=== PATIENT | female | born 1950 | race Caucasian/White ===

== ENCOUNTER → 2016-11-23 | Outpatient (CLI) | payer BC ==
[~2016-11-23] MED LIST: AFRIN) (GENASAL15 ML NOSE; ALEVE220 MG PO; ANUSOL-HC CREAM30 GM TOP; ASPIRIN EC81 MG PO; BENICAR40 MG PO; BLACK COHOSH200 MG PO; BYSTOLIC2.5 MG PO; CALCIUM + VITA1 EACH PO; COLACE100 MG PO; FEMARA 2.5 MG2.5 MG PO; LANTUS (IN100 UNIT/M SUB-Q; MAGNESIUM PO; MIRALAX17 GM PO; NORVASC5 MG PO; NOVOLOG100 UNIT/M SUB-Q; RESTASIS1 EACH OPHTH; ROXICODONE 5MG (5 MG PO; TYLENOL325 MG PO; VALIUM5 MG PO; VITAMIN E400 UNI2 PO
== END | disposition disaster alternative care site (69) ==
LOC: GRAD 09:32
DX: C50.811 Malignant neoplasm of overlapping sites of right female breast (principal); C72.0 Malignant neoplasm of spinal cord; M47.816 Spondylosis without myelopathy or radiculopathy, lumbar region; N95.1 Menopausal and female climacteric states

== ENCOUNTER → 2017-05-20 | Outpatient (CLI) | payer BC ==
[2017-05-20 07:34] LABS: ALBUMIN 3.4 gm/dL (3.5-5.0); ANION GAP 10.1 (10.0-19.0); CALCIUM 8.6 mg/dL (8.5-10.5); CREATININE 0.9 mg/dL (0.5-1.1); PHOSPHORUS 3.3 mg/dL (2.5-4.9); POTASSIUM 4.1 mMol/L (3.7-5.1)
== END | disposition disaster alternative care site (69) ==
LOC: GLAB 04-27 07:00 → GBCOE 07:30
PROVIDERS: Internal Medicine Hematology & Oncology
DX: Z12.31 Encounter for screening mammogram for malignant neoplasm of breast (principal); C72.0 Malignant neoplasm of spinal cord; N95.1 Menopausal and female climacteric states; Z85.3 Personal history of malignant neoplasm of breast; Z90.11 Acquired absence of right breast and nipple
CPT/HCPCS: G0202